=== PATIENT | male | born 1985 | race Caucasian/White ===

== ENCOUNTER → 2016-05-14 | Outpatient (CLI) | payer OTHER ==
[~2016-05-14] MED LIST: CONRAY-43 43% 50ML VIAL (Q9960) As Ordered ONE
--- NOTE | 2016-05-14 09:27 | REP ---
MR ARTHROGRAM LEFT SHOULDER: TECHNIQUE: Axial T2 fat sat, coronal oblique T1, T2 fat sat, post arthrogram axial T1 fat sat, proton density, coronal oblique T1 fat sat, T2 sat, sagittal oblique T2 fat sat, ABER T1 fat sat. There is a partial undersurface tear of the supraspinatus tendon. No full thickness rotator cuff tear is seen. Acromion is mildly downward sloping. Biceps tendon is within the bicipital groove with no tenosynovitis. There is no Hill-Sachs deformity. Deltoid muscle demonstrates no abnormal signal. Biceps labral complex is intact. There is no SLAP tear or labral tear. There is no bone marrow edema or occult fracture. There is no joint effusion. There is no paralabral cyst. IMPRESSION: Partial undersurface tear supraspinatus tendon. No SLAP tear or labral tear. Signed by Sahil Villa MD 05/14/2016 12:57 P
--- NOTE | 2016-05-14 16:12 | REP ---
LEFT SHOULDER ARTHROGRAM: The procedure was performed under the direct supervision of Dr. Villa. The benefits and risks including, but not limited to pain, infection, bleeding, and anaphylaxis were explained to the patient and informed consent was obtained. The left glenohumeral joint space was localized using fluoroscopic guidance. The skin was prepped and draped in a sterile fashion. 1% lidocaine was used as a local anesthetic. Using fluoroscopic guidance a 22-gauge spinal needle was inserted and advanced into the joint. 0.5 mL of Conray-43 was injected to verify placement. 11 mL of a solution containing 20 mL of sterile saline and 0.15 mL of ProHance was injected. The needle was removed and the patient was taken to MRI for postprocedural imaging. The patient tolerated the procedure well and there were no immediate complications. 1 second of fluoroscopic time was utilized for this procedure. Reviewed by PARAG Perez 05/14/2016 05:01 PEdited and Signed by Sahil Villa MD 05/15/2016 03:34 P
== END ==
LOC: M RADPRO 07:02
DX: M75.82 Other shoulder lesions, left shoulder (principal)
CPT/HCPCS: 23350; 73223; 77002; A9576; Q9960